=== PATIENT | female | born 1945 | race Caucasian/White ===

== ENCOUNTER 2018-04-09 07:48 | Day surgery (SDC) | payer MEDICARE, OTHER ==
[~2018-04-09] VITALS: Ht 170.2 cm; Wt 77.4 kg
[2018-04-09] VITALS (19 sets, daily range): BP systolic 120–156; BP diastolic 39–105
[2018-04-09] MEDS ORDERED: MEGE40TA27 PO (08:30)
[2018-04-09] MEDS ORDERED: ALEN70TA60 PO (08:30)
[2018-04-09] MEDS ORDERED: METO25TA6 PO (08:30)
[2018-04-09] MEDS ORDERED: normal saline 1000ml 1,000 ML IV SCH (08:30)
[2018-04-09] MEDS ORDERED: BENA20TA82 PO (08:30)
[2018-04-09] MEDS ORDERED: AMLO2.5T2 PO (08:30)
[2018-04-09] MEDS ORDERED: SYN0.088T PO (08:30)
[2018-04-09] MEDS ORDERED: RIVA20TA PO (08:30)
[2018-04-09] MEDS ORDERED: fentaNYL/PF 50MCG/1 ML 2ML syringe IV PRN (08:55)
[2018-04-09] MEDS ORDERED: midazolam 2 mg/2 ml injection IV PRN (08:55)
[2018-04-09] MEDS ORDERED: LIDOcaine 1%/PF 5ML 10 MG/ML VIAL SQ ONE (08:55)
[2018-04-09 09:14] LABS: ALBUMIN 3.7 G/DL (3.4-5.0); ANION GAP 9 (8-16); BLOOD UREA NITROGEN 10 MG/DL (7-18); BUN/CREATININE RATIO 12.7 (6.6-38.0); CALCIUM 9.3 MG/DL (8.5-10.1); CHLORIDE 105 MMOL/L (99-107); CREATININE 0.79 MG/DL (0.40-0.90); GLUCOSE 98 MG/DL (70-104); POTASSIUM 4.3 MMOL/L (3.5-5.1); SODIUM 139 MMOL/L (135-145); TOTAL CARBON DIOXIDE 24.8 MMOL/L (24-32); eGFR 72 ML/MIN
[2018-04-09 09:16] LABS: PROTHROMBIN TIME 10.6 SECONDS (9.0-12.0)
[2018-04-09] MEDS ORDERED: LIDOcaine 1%/PF 5ML 10 MG/ML VIAL ONE (09:28)
[2018-04-09] MEDS ORDERED: fentaNYL/PF 50MCG/1 ML 2ML syringe ONE (09:28)
[2018-04-09] MEDS ORDERED: midazolam 2 mg/2 ml injection ONE (09:28)
== END 2018-04-09 14:45 | disposition home or self-care (01) ==
LOC: SSTAY O 07:48
PROVIDERS: ATTEND Radiology Diagnostic Radiology
DX: D13.4 Benign neoplasm of liver (principal); I10 Essential (primary) hypertension; E03.9 Hypothyroidism, unspecified; M81.0 Age-related osteoporosis without current pathological fracture; I48.91 Unspecified atrial fibrillation; Z87.891 Personal history of nicotine dependence; Z87.39 Personal history of other diseases of the musculoskeletal system and connective tissue; Z88.5 Allergy status to narcotic agent; Z72.89 Other problems related to lifestyle; Z90.710 Acquired absence of both cervix and uterus; Z85.43 Personal history of malignant neoplasm of ovary; Z98.890 Other specified postprocedural states; Z79.899 Other long term (current) drug therapy; Z83.79 Family history of other diseases of the digestive system
CPT/HCPCS: 36415; 47000; 71045; 77012; 80048; 82948; 85610; 99152; 99153; J2001; J2250; J3010; J7030; 76942

== ENCOUNTER 2023-07-01 07:49 | Emergency (ER) | payer MEDICARE, OTHER ==
[~2023-07-01] VITALS: Ht 165.1 cm; Wt 86.2 kg
[~2023-07-01 07:49] MED LIST: ALEN70TA60 PO; AMLO2.5T2 PO; BENA20TA82 PO; LOP25T PO; MEGE40TA5 PO; RIVA20TA PO; SYN0.088T PO
[2023-07-01] MEDS ORDERED: levetiracetam inj 1,000 MG in normal saline 100ml IV soln 100 ML IV STA (08:31)
[2023-07-01 08:35] LABS: ALBUMIN 3.1 G/DL (3.4-5.0); ANION GAP 15 (8-16); BLOOD UREA NITROGEN 12 MG/DL (7-18); BUN/CREATININE RATIO 12.9 (10.0-20.0); CALCIUM 8.7 MG/DL (8.5-10.1); CHLORIDE 102 MMOL/L (99-107); CREATININE 0.93 MG/DL (0.40-0.90); GLUCOSE 176 MG/DL (70-104); PRO BRAIN NATRIURETIC PEPTIDE 175 PG/ML (0-450); SODIUM 136 MMOL/L (135-145); TOTAL CARBON DIOXIDE 18.7 MMOL/L (24-32); eCRCL 46 ML/MIN; eGFR 59 ML/MIN
[2023-07-01] MEDS ORDERED: levetiracetam inj 1,000 MG in normal saline 100ml IV soln 90 ML IV STA (08:39)
[2023-07-01 08:42] LABS: BASOPHILS # (AUTO) 0.1 X10'3 (0-0.2); BASOPHILS % (AUTO) 0.5 % (0-1); EOSINOPHILS # (AUTO) 0.1 X10'3 (0-0.9); HEMATOCRIT 33.9 % (35.0-45.0); HEMOGLOBIN 11.4 g/dl (12.0-16.0); LYMPHOCYTES # (AUTO) 1.4 X10'3 (1.1-4.8); LYMPHOCYTES % (AUTO) 13.7 % (21-51); MEAN CORPUSCULAR HGB CONC 33.6 g/dL (33.0-36.5); MEAN CORPUSCULAR VOLUME 86.3 FL (78-98); MEAN PLATELET VOLUME 6.8 FL (7.4-10.4); MONOCYTES # (AUTO) 0.8 X10'3 (0-0.9); MONOCYTES % (AUTO) 7.3 % (2-12); NEUTROPHILS # (AUTO) 8.2 X10'3 (1.8-7.7); NEUTROPHILS % (AUTO) 77.5 % (42-75); PLATELET COUNT 322 X10'3 (140-440); RED BLOOD COUNT 3.92 X10'6 (4.20-5.60); RED CELL DISTRIBUTION WIDTH 14.5 % (11.5-14.5); WHITE BLOOD COUNT 10.6 X10'3 (4.5-11.0)
[2023-07-01] MEDS: diltiazem 5mg/ml 5ml inj. IV ONE ×2 (08:44→09:37)
[2023-07-01] MEDS: dexamethasone sod phosphate 10mg/ml inj IV STA (08:47)
[2023-07-01 08:49] LABS: POTASSIUM 4.2 MMOL/L (3.5-5.1)
[2023-07-01 08:55] LABS: APTT 26 SECONDS (22-32); INR 1.2 INR; PROTHROMBIN TIME 12.9 SECONDS (9.0-12.0)
[2023-07-01] MEDS: levetiracetam inj 1,000 MG in normal saline 100ml IV soln 100 ML IV STA (09:10)
[2023-07-01 10:46] VITALS: BP 136/67; PULSE 101; RESP 23; TEMP 98.7; O2SAT 68
== END 2023-07-01 10:50 | disposition short-term general hospital (02) ==
LOC: ER 07:50
DX: R56.9 Unspecified convulsions (principal); I48.91 Unspecified atrial fibrillation; D49.6 Neoplasm of unspecified behavior of brain; Z88.8 Allergy status to other drugs, medicaments and biological substances
CPT/HCPCS: 36415; 70450; 71045; 80048; 83605; 83880; 84145; 84484; 85025; 85610; 85730; 86885; 86900; 86901; 87040; 93005; 96374; 96375; 96376; 99291; 99292; J1100; J1953; J3490; 96365; 96366